=== PATIENT | male | born 1970 | race Caucasian/White ===

== ENCOUNTER 2017-08-16 05:24 | Day surgery (SDC) | payer MEDICARE, OTHER ==
[~2017-08-16] VITALS: Ht 177.8 cm; Wt 79.4 kg
[~2017-08-16 05:24] MED LIST: ALEVE220 MG PO; B COMPLETE PO; CLARIT10 PO; D 5000 PO; LIPITOR10 PO; LOFIB160 PO; LOP25 PO; METHOC750B PO; MIRALAXPKT PO; MSCONTIN PO; MULTIPLE VIT PO; NEUR300 PO; NORCO1 TA1 PO; OSTEO BI-FLEX1 EACH PO; PAX20 PO; PERCOCET1 TA4 PO; PRILOSEC40 MG PO; SEROQUEL XR200 MG PO; SEROQUEL400 MG PO; SINGULAIR1 PO; STOOL SOFTEN240 MG PO; TRICOR145 PO; TRILEP300 PO; V2 PO; VITAMIN D31000 UNIT PO; ZANAFLEX 4 MG TA4 MG PO; ZOL50 PO
== END 2017-08-16 08:17 | disposition home or self-care (01) ==
LOC: SDC 05:24
PROVIDERS: Orthopaedic Surgery
PROC: 3E0R3BZ Introduction of Anesthetic Agent into Spinal Canal, Percutaneous Approach (ICD-10-PCS; 2017-08-16)
PROC: B01BZZZ Fluoroscopy of Spinal Cord (ICD-10-PCS; 2017-08-16)
PROC: 3E0R33Z Introduction of Anti-inflammatory into Spinal Canal, Percutaneous Approach (ICD-10-PCS; principal; 2017-08-16 07:15)
DX: M54.16 Radiculopathy, lumbar region (principal); Z79.899 Other long term (current) drug therapy; Z91.040 Latex allergy status; Z87.891 Personal history of nicotine dependence
CPT/HCPCS: J1040; J2250; J3010; Q9967